=== PATIENT | male | born 1985 ===

== ENCOUNTER 2018-06-27 11:08 | Observation (INO) | payer MEDICAID ==
[2018-06-27] MEDS ORDERED: Amoxicillin-Clav 875-125 mg Tab PO STA (12:03)
[2018-06-27] MEDS ORDERED: Bacitracin 500 Units/gm Oint Foilpak UD TOP ONE (12:03)
[2018-06-27] MEDS ORDERED: Tdap Vaccine 0.5 ml Vial (10-64 yrs) IM ONE ×2 (12:03→12:10)
--- NOTE | 2018-06-27 12:06 | C.PDOC ---
History Of Present Illness 32 y/o male presents to ED for evaluation of cat bite to left hand 1:30 am last night. Patient states he was watching brother's cat and was bit on left hand, went to sleep and woke up with worse pain, swelling to left hand with mild redness. Patient denies numbness to hand, arm pain, fever, chills or any other complaints at this time. Patient is right hand dominant is not UTD with Tetanus vaccine. Time Seen by Provider: 06/27/18 11:34 Chief Complaint (Nursing): Bite History Per: Patient History/Exam Limitations: no limitations Onset/Duration Of Symptoms: Days Current Symptoms Are (Timing): Still Present Past Medical History Reviewed: Historical Data, Nursing Documentation, Vital Signs Vital Signs: Last Vital Signs Temp 98.6 F 06/27/18 11:23 Pulse 89 06/27/18 11:23 Resp 18 06/27/18 11:23 BP 133/85 06/27/18 11:23 Pulse Ox 98 06/27/18 12:25 - Medical History PMH: No Chronic Diseases Surgical History: No Surg Hx Family History: States: No Known Family Hx - Social History Hx Alcohol Use: No Hx Substance Use: No - Immunization History Hx Tetanus Toxoid Vaccination: No Review Of Systems Constitutional: Negative for: Fever, Chills Musculoskeletal: Positive for: Hand Pain Skin: Negative for: Rash, Bruising Neurological: Negative for: Numbness Physical Exam - Physical Exam Appears: Non-toxic, No Acute Distress Skin: Warm, Dry, No Rash Head: Atraumatic, Normacephalic Oral Mucosa: Moist Extremity: Capillary Refill (<2 seconds), No Deformity, Swelling (minimal to dorsal aspect of left hand), Other (puncture wound to drosal aspect of left hand with clear discharge and surrounding erythema) Pulses: Left Radial: Normal Neurological/Psych: Oriented x3, Normal Motor, Normal Sensation ED Course And Treatment O2 Sat by Pulse Oximetry: 98 (RA) Pulse Ox Interpretation: Normal Progress Note: Patient started on PO antibiotics, Tetanus vaccine administered. Patient admitted for IV antibiotics Disposition - Disposition Disposition: HOME/ ROUTINE Disposition Time: 12:23 Condition: STABLE Prescriptions: Amoxicillin/Clavulanate [Augmentin 875 MG-125 MG] 1 tab PO BID #14 tab Mupirocin 2% Ointment [Bactroban Ointment] 1 appl TP TID #1 tube Instructions: Animal Bites (DC) Forms: [employer] ([place]) - PA / SUPPLIER MANAGER / Resident Statement MD/DO has reviewed & agrees with the documentation as recorded. - Scribe Statement The provider has reviewed the documentation as recorded by the Fabianibjudi Soria All medical record entries made by the Fabianibjdui were at my direction and personally dictated by me. I have reviewed the chart and agree that the record accurately reflects my personal performance of the history, physical exam, medical decision making, and the department course for this patient. I have also personally directed, reviewed, and agree with the discharge instructions and disposition.
[2018-06-27] MEDS ORDERED: Amoxicillin-Clav 875-125 mg Tab PO ONE (12:10)
[2018-06-27] MEDS ORDERED: Bacitracin 500 Units/gm Oint Foilpak UD ONE (12:10)
[2018-06-27] MEDS ORDERED: Piperacillin/Tazobact 3.375 gm 100 ML IV STA (12:29)
[2018-06-27 12:56] LABS: BASO # 0.1 K/uL (0.0-0.2); BASO % 0.5 % (0.0-2.0); EOS # 0.1 K/uL (0.0-0.7); EOS % 0.8 % (0.0-4.0); HEMOGLOBIN 13.8 g/dL (12.0-18.0); LYMPH # 2.3 K/uL (1.0-4.3); LYMPH % 21.7 % (20.0-40.0); MEAN CELL VOLUME 90.4 fL (80.0-94.0); MEAN CORPUSCULAR HEMOGLOBIN 31.5 pg (27.0-31.0); MEAN CORPUSCULAR HGB CONC 34.9 g/dL (33.0-37.0); MEAN PLATELET VOLUME 8.9 fL (7.2-11.7); MONO # 0.8 K/uL (0.0-0.8); MONO % 7.8 % (0.0-10.0); NEUT # 7.4 K/uL (1.8-7.0); NEUT % 69.2 % (50.0-75.0); RBC 4.37 Mil/uL (4.40-5.90); RED CELL DISTRIBUTION WIDTH 12.7 % (11.5-14.5); WHITE BLOOD COUNT 10.6 K/uL (4.8-10.8)
[2018-06-27 13:08] LABS: ALB/GLOB RATIO 1.4 (1.0-2.1); ALBUMIN 4.4 g/dL (3.5-5.0); ALT/SGPT 58 U/L (21-72); AST/SGOT 27 U/L (17-59); BLOOD UREA NITROGEN 17 mg/dL (9-20); CALCIUM 9.5 mg/dl (8.6-10.4); GFR NON-AFRICAN AMERICAN > 60
[2018-06-27] MEDS ORDERED: Piperacillin/Tazobact 3.375 gm 100 ML IVPB ONE (13:18)
--- NOTE | 2018-06-27 15:31 | CP.PCM.HP ---
History of Present Illness - History of Present Illness History of Present Illness: CC: cat bite on left hand HPI: Patient is a 32 y/o M with no significant PMHx who presents today after being bitten in the left hand by his brother's cat last night at 1:30am. Patient was taking care of his brother's cat and when he took the cat out of its cage to feed it the cat bit his hand and scratched him. His hand was bleeding some which stopped spontaneously. Patient did not clean the wound, but put a bandage on and went to sleep. This morning upon waking up patient said his hand was causing him 8/10 pain and he felt like he could not flex the hand well so he came to the ER. Once given Toradol in the ER patient's pain decreased to 5/10. Of note the cat has had immunizations and solely lives indoors. PMD: none Allergies: NKDA PMHx: none Psurg: none Famhx: none Social: smokes 5-6 cigarettes for 7 years, denies drugs and alcohol Meds: none Present on Admission - Present on Admission Any Indicators Present on Admission: No History of DVT/PE: No History of Uncontrolled Diabetes: No Urinary Catheter: No Decubitus Ulcer Present: No Review of Systems - Constitutional Constitutional: absent: Fever - EENT Eyes: absent: Blurred Vision - Cardiovascular Cardiovascular: absent: Chest Pain, Dyspnea, Leg Edema - Respiratory Respiratory: absent: Dyspnea - Gastrointestinal Gastrointestinal: absent: Abdominal Pain, Constipation, Diarrhea, Nausea, Vomiting - Genitourinary Genitourinary: absent: Dysuria - Musculoskeletal Musculoskeletal: Limited Range of Motion, Stiffness Additional comments: left hand pain - Integumentary Integumentary: Skin Pain Additional comments: puncture wound in left hand from cat bite Past Patient History - Past Social History Smoking Status: Light Smoker < 10 Cigarettes Daily - PSYCHIATRIC Hx Substance Use: No - SURGICAL HISTORY Hx Surgeries: No Meds Home Medications: Home Medication List Medication Instructions Recorded Confirmed Type Amoxicillin/Clavulanate [Augmentin 1 tab PO BID #14 tab 06/27/18 Rx 875 MG-125 MG] Mupirocin 2% Ointment [Bactroban 1 appl TP TID #1 tube 06/27/18 Rx Ointment] Allergies/Adverse Reactions: Allergies Allergy/AdvReac Type Severity Reaction Status Date / Time No Known Allergies Allergy Verified 06/27/18 11:25 Physical Exam - Constitutional Appears: Non-toxic, No Acute Distress - Head Exam Head Exam: ATRAUMATIC, NORMAL INSPECTION, NORMOCEPHALIC - Eye Exam Eye Exam: EOMI, Normal appearance - ENT Exam ENT Exam: Mucous Membranes Moist - Respiratory Exam Respiratory Exam: Clear to Auscultation Bilateral, NORMAL BREATHING PATTERN - Cardiovascular Exam Cardiovascular Exam: REGULAR RHYTHM, RRR, +S1, +S2 - Extremities Exam Extremities exam: Positive for: normal inspection. Negative for: pedal edema, tenderness - Back Exam Back exam: NORMAL INSPECTION - Neurological Exam Neurological exam: Alert, Oriented x3 - Psychiatric Exam Psychiatric exam: Normal Affect, Normal Mood - Skin Skin Exam: Warm Additional comments: dorsum of left hand with small puncture wound and erythematous and edematous area circumscribed with marking pen Results - Vital Signs Recent Vital Signs: Last Vital Signs Temp 98.7 F 06/27/18 14:18 Pulse 75 06/27/18 14:18 Resp 18 06/27/18 14:18 BP 123/70 06/27/18 14:18 Pulse Ox 99 06/27/18 14:18 - Labs Result Diagrams: 06/27/18 12:52 06/27/18 12:52 Labs: Laboratory Results - last 24 hr 06/27/18 06/27/18 12:52 12:52 WBC 10.6 RBC 4.37 L Hgb 13.8 Hct 39.5 MCV 90.4 MCH 31.5 H MCHC 34.9 RDW 12.7 Plt Count 261 MPV 8.9 Neut % (Auto) 69.2 Lymph % (Auto) 21.7 [place] % (Auto) 7.8 Eos % (Auto) 0.8 Baso % (Auto) 0.5 Neut # (Auto) 7.4 H Lymph # (Auto) 2.3 [place] # (Auto) 0.8 Eos # (Auto) 0.1 Baso # (Auto) 0.1 Sodium 138 Potassium 4.0 Chloride 104 Carbon Dioxide 22 Anion Gap 15 BUN 17 Creatinine 0.7 L Est GFR ( Amer) > 60 Est GFR (Non-Af Amer) > 60 Random Glucose 94 Calcium 9.5 Total Bilirubin 1.0 AST 27 ALT 58 Alkaline Phosphatase 78 Total Protein 7.4 Albumin 4.4 Globulin 3.1 Albumin/Globulin Ratio 1.4 Assessment & Plan - Assessment and Plan (Free Text) Assessment: Cellulitis of Left Hand 2/2 cat bite patient given Augmentin and Zosyn in ER Toradol 30mg ivp given Tetanus given in ED afebrile, no leukocytosis f/u blood cultures meds: continue Zosyn 3.375gm q6h Motrin 600mg po q6h prn for pain Prophylaxis SCDs Discussed with Dr. Guzman
[2018-06-27 16:19] VITALS: RESP 20
[2018-06-27] MEDS ORDERED: Piperacill/Tazo 3.375gm in Dex 3.375 GM/50 ML BAG IVPB SCH (16:30)
[2018-06-27] MEDS: Piperacill/Tazo 3.375gm in Dex 3.375 GM/50 ML BAG IVPB SCH (18:38)
[2018-06-28] MEDS: Piperacill/Tazo 3.375gm in Dex 3.375 GM/50 ML BAG IVPB SCH ×2 (00:45→06:30)
[2018-06-28 06:49] LABS: BASO % 0.4 % (0.0-2.0); EOS # 0.1 K/uL (0.0-0.7); HEMOGLOBIN 13.1 g/dL (12.0-18.0); LYMPH # 1.6 K/uL (1.0-4.3); LYMPH % 23.2 % (20.0-40.0); MEAN CELL VOLUME 91.3 fL (80.0-94.0); MEAN CORPUSCULAR HEMOGLOBIN 31.9 pg (27.0-31.0); MEAN CORPUSCULAR HGB CONC 34.9 g/dL (33.0-37.0); MEAN PLATELET VOLUME 9.1 fL (7.2-11.7); MONO # 0.8 K/uL (0.0-0.8); MONO % 11.7 % (0.0-10.0); NEUT # 4.4 K/uL (1.8-7.0); NEUT % 62.7 % (50.0-75.0); RBC 4.09 Mil/uL (4.40-5.90); RED CELL DISTRIBUTION WIDTH 12.8 % (11.5-14.5)
[2018-06-28 06:59] LABS: ALB/GLOB RATIO 1.3 (1.0-2.1); ALBUMIN 3.7 g/dL (3.5-5.0); ALT/SGPT 41 U/L (21-72); AST/SGOT 21 U/L (17-59); BLOOD UREA NITROGEN 20 mg/dL (9-20); CALCIUM 8.9 mg/dl (8.6-10.4); GFR NON-AFRICAN AMERICAN > 60
--- NOTE | 2018-06-28 07:26 | CP.PCM.PN ---
Subjective - Date & Time of Evaluation Date of Evaluation: 06/28/18 Time of Evaluation: 07:25 - Subjective Subjective: PGY-1 Progress note for . Objective - Vital Signs/Intake and Output Vital Signs (last 24 hours): Temp Pulse Resp BP Pulse Ox 98.2 F 67 20 107/61 99 06/28/18 05:30 06/27/18 23:34 06/27/18 23:34 06/27/18 23:34 06/28/18 02:00 - Medications Medications: Current Medications Piperacillin Sod/Tazobactam Sod (Zosyn 3.375 Gm Iv Premix) 3.375 gm in 50 mls @ 100 mls/hr IVPB Q6H [place]; Protocol Last Admin: 06/28/18 06:30 Dose: 100 mls/hr Ibuprofen (Motrin Tab) 600 mg PO Q6H PRN PRN Reason: Pain, moderate (4-7) Pneumococcal Polyvalent Vaccine (Pneumovax 23 Vaccine) 0.5 ml IM .ONCE ONE Stop: 06/28/18 10:01 - Labs Labs: 06/28/18 06:35 06/28/18 06:35
[2018-06-28 07:52] VITALS: BP 100/64; PULSE 60; TEMP 98.1; O2SAT 97
[2018-06-28] MEDS ORDERED: Pneumococcal 23-Valent Vaccine IM ONE (10:00)
--- NOTE | 2018-06-28 20:25 | CP.PCM.DIS ---
Provider - Provider Date of Admission: 06/27/18 15:03 Attending physician: Shanell Guzman MD Time Spent in preparation of Discharge (in minutes): 35 Diagnosis - Discharge Diagnosis (1) Cellulitis Status: Acute Hospital Course - Lab Results Lab Results: Micro Results 06/27/18 15:36 Blood Blood Culture - Preliminary NO GROWTH AFTER 24 HOURS 06/27/18 15:36 Blood Blood Culture - Preliminary NO GROWTH AFTER 24 HOURS Most Recent Lab Values WBC 7.0 K/uL (4.8-10.8) 06/28/18 06:35 RBC 4.09 Mil/uL (4.40-5.90) L 06/28/18 06:35 Hgb 13.1 g/dL (12.0-18.0) 06/28/18 06:35 Hct 37.4 % (35.0-51.0) 06/28/18 06:35 MCV 91.3 fL (80.0-94.0) 06/28/18 06:35 MCH 31.9 pg (27.0-31.0) H 06/28/18 06:35 MCHC 34.9 g/dL (33.0-37.0) 06/28/18 06:35 RDW 12.8 % (11.5-14.5) 06/28/18 06:35 Plt Count 212 K/uL (130-400) 06/28/18 06:35 MPV 9.1 fL (7.2-11.7) 06/28/18 06:35 Neut % (Auto) 62.7 % (50.0-75.0) 06/28/18 06:35 Lymph % (Auto) 23.2 % (20.0-40.0) 06/28/18 06:35 [place] % (Auto) 11.7 % (0.0-10.0) H 06/28/18 06:35 Eos % (Auto) 2.0 % (0.0-4.0) 06/28/18 06:35 Baso % (Auto) 0.4 % (0.0-2.0) 06/28/18 06:35 Neut # (Auto) 4.4 K/uL (1.8-7.0) 06/28/18 06:35 Lymph # (Auto) 1.6 K/uL (1.0-4.3) 06/28/18 06:35 [place] # (Auto) 0.8 K/uL (0.0-0.8) 06/28/18 06:35 Eos # (Auto) 0.1 K/uL (0.0-0.7) 06/28/18 06:35 Baso # (Auto) 0.0 K/uL (0.0-0.2) 06/28/18 06:35 Sodium 138 mmol/L (132-148) 06/28/18 06:35 Potassium 3.7 mmol/L (3.6-5.2) 06/28/18 06:35 Chloride 106 mmol/L (98-107) 06/28/18 06:35 Carbon Dioxide 23 mmol/L (22-30) 06/28/18 06:35 Anion Gap 13 (10-20) 06/28/18 06:35 BUN 20 mg/dL (9-20) 06/28/18 06:35 Creatinine 0.7 mg/dL (0.8-1.5) L 06/28/18 06:35 Est GFR ( Amer) > 60 06/28/18 06:35 Est GFR (Non-Af Amer) > 60 06/28/18 06:35 Random Glucose 94 mg/dL (75-110) 06/28/18 06:35 Calcium 8.9 mg/dl (8.6-10.4) 06/28/18 06:35 Phosphorus 4.2 mg/dL (2.5-4.5) 06/28/18 06:35 Magnesium 2.0 mg/dL (1.6-2.3) 06/28/18 06:35 Total Bilirubin 1.3 mg/dL (0.2-1.3) 06/28/18 06:35 AST 21 U/L (17-59) 06/28/18 06:35 ALT 41 U/L (21-72) 06/28/18 06:35 Alkaline Phosphatase 62 U/L (38-126) 06/28/18 06:35 Total Protein 6.5 g/dL (6.3-8.3) 06/28/18 06:35 Albumin 3.7 g/dL (3.5-5.0) 06/28/18 06:35 Globulin 2.9 gm/dL (2.2-3.9) 06/28/18 06:35 Albumin/Globulin Ratio 1.3 (1.0-2.1) 06/28/18 06:35 - Hospital Course Hospital Course: On admission: Patient is a 32 y/o M with no significant PMHx who presents today after being bitten in the left hand by his brother's cat last night at 1:30am. Patient was taking care of his brother's cat and when he took the cat out of its cage to feed it the cat bit his hand and scratched him. His hand was bleeding some which stopped spontaneously. Patient did not clean the wound, but put a bandage on and went to sleep. This morning upon waking up patient said his hand was causing him 8/10 pain and he felt like he could not flex the hand well so he came to the ER. Once given Toradol in the ER patient's pain decreased to 5/10. Of note the cat has had immunizations and solely lives indoors. Hospital Course: Patient was admitted for cellulitis of left hand secondary to cat bite. Patient given Augmentin and Zosyn in ER, toradol for pain and Tetanus vaccine. Treatment with zyosyn was continued on the floor. Labs were drawn, patient had no leukocytosis. He remained afebrile during hospital stay. Blood cultures were drawn and sent to lab, and preliminary findings show no growth after 24 hours. The cellulitis has improved, with reduced redness, swelling and warmth. There is no purulent drainage. Patient insisted on leaving and agreed that he would be called if final blood cultures returned positive. Discharge instructions: Patient is stable for discharge as per Dr. Guzman. Patient is to follow up with their primary care physician within one week of discharge. If patient does not have a physician, he may follow up at the [facility]. Call [phone] to make an appointment. Patient is prescribed the following medications: Augmentin 875-125mg, one tab twice daily for 7 days. Mupirocin 2% ointment, apply to affected area three times per day. If wound does not heal or symptoms worsen, patient is to come back to the emerg ency room. Discharge Exam - Head Exam Head Exam: ATRAUMATIC, NORMAL INSPECTION, NORMOCEPHALIC - Eye Exam Eye Exam: EOMI - ENT Exam ENT Exam: Mucous Membranes Moist - Respiratory Exam Respiratory Exam: Clear to PA & Lateral. absent: Rales, Rhonchi, Wheezes - Cardiovascular Exam Cardiovascular Exam: REGULAR RHYTHM, +S1, +S2 - Neurological Exam Neurological exam: Alert, Oriented x3 - Psychiatric Exam Psychiatric exam: Normal Affect, Normal Mood - Skin Additional comments: Erythema and edema to dorsum of L hand much improved, and receded within demarcated line. Central puncture wound without purulent drainage. Discharge Plan - Discharge Medications Prescriptions: Amoxicillin/Clavulanate [Augmentin 875 MG-125 MG] 1 tab PO BID #14 tab Mupirocin 2% Ointment [Bactroban Ointment] 1 appl TP TID #1 tube - Follow Up Plan Condition: STABLE Disposition: HOME/ ROUTINE Instructions: Animal Bites (DC), Amoxicillin, Mupirocin Additional Instructions: Patient is stable for discharge as per Dr. Guzman. Patient is to follow up with their primary care physician within one week of discharge. If patient does not have a physician, he may follow up at the [facility]. Call [phone] to make an appointment. Patient is prescribed the following medications: Augmentin 875-125mg, one tab twice daily for 7 days. Mupirocin 2% ointment, apply to affected area three times per day. If wound does not heal or symptoms worsen, patient is to come back to the emergency room.
== END 2018-06-28 12:00 | disposition home or self-care (01) ==
LOC: C.ER 11:08 → C.9E 15:03 → C.3T 15:44
PROVIDERS: ADMIT Internal Medicine; ATTEND Internal Medicine
DX: L03.114 Cellulitis of left upper limb (principal); W55.01XA Bitten by cat, initial encounter; Y92.009 Unspecified place in unspecified non-institutional (private) residence as the place of occurrence of the external cause; Z23 Encounter for immunization
CPT/HCPCS: 36415; 80053; 83735; 84100; 85025; 87040; 90471; 90715; 96374; 99285; G0378; J1885; J2543